=== PATIENT | male | born 1960 | race Hispanic/Latino ===

== ENCOUNTER 2018-05-09 09:10 | Inpatient (IN) | payer BC ==
[2018-05-09 09:11] VITALS: BMI 32.8
[2018-05-09 09:53] LABS: BASO % 0.4 % (0.0-2.0); EOS # 0.1 K/uL (0.0-0.7); EOS % 1.2 % (0.0-4.0); HEMOGLOBIN 6.8 g/dL (12.0-18.0); LYMPH % 23.3 % (20.0-40.0); MEAN CELL VOLUME 93.3 fL (80.0-94.0); MEAN CORPUSCULAR HEMOGLOBIN 28.8 pg (27.0-31.0); MEAN CORPUSCULAR HGB CONC 30.9 g/dL (33.0-37.0); MEAN PLATELET VOLUME 9.1 fL (7.2-11.7); MONO # 0.4 K/uL (0.0-0.8); MONO % 8.7 % (0.0-10.0); NEUT # 2.8 K/uL (1.8-7.0); NEUT % 66.4 % (50.0-75.0); NRBC % 0.1 % (0.0-2.0); RBC 2.38 Mil/uL (4.40-5.90); RED CELL DISTRIBUTION WIDTH 22.9 % (11.5-14.5); WHITE BLOOD COUNT 4.3 K/uL (4.8-10.8)
[2018-05-09 10:02] LABS: IRON 17 ug/dL (49-181)
[2018-05-09 10:03] LABS: INR 1.2; PROTHROMBIN TIME 12.9 SECONDS (9.7-12.2)
[2018-05-09 10:12] LABS: % IRON SATURATION 3 (20-55); TOTAL IRON BINDING CAPACITY 509 ug/dL (250-450)
[2018-05-09 10:41] LABS: FERRITIN 5.6 ng/mL
--- NOTE | 2018-05-09 11:04 | C.PDOC ---
History Of Present Illness 57-year-old male, is sent to the emergency department from Dr Barba office for symptomatic anemia. Patient had bloodwork done two days ago which showed a low hemoglobin. he is complaining of generalized weakness. No nausea/vomiting, fever, chills, blood in stool or any other associated symptoms. No other complaints at this time. Chief Complaint (Nursing): Weakness/Neurological Deficit Past Medical History Reviewed: Historical Data, Nursing Documentation, Vital Signs Vital Signs: Last Vital Signs Temp 99.8 F H 05/09/18 09:19 Pulse 93 H 05/09/18 09:19 Resp 18 05/09/18 09:19 BP 168/83 H 05/09/18 09:19 Pulse Ox 100 05/09/18 09:19 - Medical History PMH: Anemia, Arthritis, Gastritis, HTN, Hypothyroidism Family History: States: No Known Family Hx - Social History Hx Alcohol Use: Yes Hx Substance Use: No - Immunization History Hx Tetanus Toxoid Vaccination: No Hx Influenza Vaccination: No Hx Pneumococcal Vaccination: No Physical Exam - Physical Exam Appears: Non-toxic, No Acute Distress Skin: Warm, Dry, No Rash Head: Atraumatic, Normacephalic Eye(s): bilateral: PERRL, EOMI, Conjunctiva Pale Nose: Normal Oral Mucosa: Moist Lips: Normal Appearing Neck: Normal ROM Cardiovascular: Rhythm Regular, No Murmur Respiratory: Normal Breath Sounds, No Accessory Muscle Use Gastrointestinal/Abdominal: Soft, No Tenderness Back: Normal Inspection Extremity: Normal ROM, No Deformity Neurological/Psych: Oriented x3, Normal Speech ED Course And Treatment - Laboratory Results Result Diagrams: 05/09/18 09:45 05/09/18 09:45 O2 Sat by Pulse Oximetry: 100 Pulse Ox Interpretation: Normal (RA) Disposition - Disposition Disposition Time: 10:00 Condition: STABLE - Clinical Impression Clinical Impression: Symptomatic anemia - Scribe Statement The provider has reviewed the documentation as recorded by the Scribe (Mihaela Bustos) Provider Attestation: All medical record entries made by the Scribe were at my direction and personally dictated by me. I have reviewed the chart and agree that the record accurately reflects my personal performance of the history, physical exam, medical decision making, and the department course for this patient. I have also personally directed, reviewed, and agree with the discharge instructions and disposition.
[2018-05-09 11:05] LABS: ALB/GLOB RATIO 2.2 (1.0-2.1); ALBUMIN 4.1 g/dL (3.5-5.0); ALT/SGPT 46 U/L (21-72); AST/SGOT 23 U/L (17-59); BLOOD UREA NITROGEN 20 mg/dL (9-20); CALCIUM 9.1 mg/dl (8.6-10.4); GFR NON-AFRICAN AMERICAN > 60
[2018-05-09] MEDS: (Novolog) Insulin Aspart, Recombinant 100 u/ml 10 ml vial SC SCH (21:53)
[2018-05-10] MEDS: (Novolog) Insulin Aspart, Recombinant 100 u/ml 10 ml vial SC SCH ×4 (07:40→21:40)
[2018-05-10 08:01] LABS: HEMOGLOBIN 8.3 g/dL (12.0-18.0); MEAN CORPUSCULAR HEMOGLOBIN 28.1 pg (27.0-31.0); MEAN CORPUSCULAR HGB CONC 31.5 g/dL (33.0-37.0); RBC 2.95 Mil/uL (4.40-5.90); RED CELL DISTRIBUTION WIDTH 21.2 % (11.5-14.5); WHITE BLOOD COUNT 4.7 K/uL (4.8-10.8)
[2018-05-10 08:07] LABS: MEAN CELL VOLUME 89.3 fL (80.0-94.0)
[2018-05-10 08:20] LABS: HDL CHOLESTEROL 24 mg/dL (30-70); IRON 119 ug/dL (49-181)
[2018-05-10 08:27] LABS: ALB/GLOB RATIO 2.2 (1.0-2.1); ALBUMIN 4.4 g/dL (3.5-5.0); ALT/SGPT 53 U/L (21-72); AST/SGOT 29 U/L (17-59); BLOOD UREA NITROGEN 14 mg/dL (9-20); CALCIUM 9.2 mg/dl (8.6-10.4); GFR NON-AFRICAN AMERICAN > 60
[2018-05-10 08:31] LABS: % IRON SATURATION 22 (20-55); TOTAL IRON BINDING CAPACITY 545 ug/dL (250-450)
[2018-05-10 08:33] LABS: LDL CHOLESTEROL 66 mg/dL (0-129)
--- NOTE | 2018-05-10 08:41 | HP ---
The patient was seen and examined at bedside in the emergency room on 05/09/2018. He has family around him. CHIEF COMPLAINT: Generalized weakness. HISTORY OF PRESENT ILLNESS: Mr. Misael Welsh is a 57-year-old male, sent to the emergency room department from Dr. Gallego's office for symptomatic anemia. The patient had blood workup done two days ago which showed low hemoglobin. He is complaining of generalized weakness. No nausea or vomiting. No fever. No chills. No blood in the stool or any other associated symptoms. No other complaints at this time when I saw the patient in ER. He was just feeling fatigued and tired. PAST MEDICAL HISTORY: Anemia, according to patient it is sideroblastic anemia; arthritis; gastritis; hypertension; and hypothyroidism. HABITS: Alcohol, yes. Substance abuse, no. Smoking, no. REVIEW OF SYSTEMS: The patient was seen and examined at the bedside in ER. Feeling fatigued, tired. No nausea, vomiting, or diarrhea. No hematuria. No hematochezia. No swelling of the leg. No chest pain. No palpitations, headaches, or dizziness. PHYSICAL EXAMINATION: VITAL SIGNS: Temperature 99.8, pulse 92, respiratory rate 18, blood pressure 116/83. HEENT: Head: Normocephalic, atraumatic. Eyes: PERRLA. Extraocular muscles intact. Conjunctivae clear. Nose patent. NECK: Supple. No carotid bruit. No JVD or thyromegaly. CHEST: Bilaterally symmetrical. HEART: S1 and S2 positive. LUNGS: Clear to auscultation. ABDOMEN: Soft. Bowel sounds present. No organomegaly. EXTREMITIES: No edema. No cyanosis. NEUROLOGICAL: The patient is awake and alert. Moving all 4 extremities. No focal deficits. LABORATORY DATA: White blood cells 4.3, hemoglobin 6.8, hematocrit 22.2, and platelets 192. Sodium 144, potassium 4.1, BUN 20, creatinine 0.7, and glucose 142. ASSESSMENT AND PLAN: Mr. Misael Welsh is a 57-year-old male with leukopenia, anemia, hyperchloremia, hyperglycemia, who is admitted with symptomatic anemia. The patient has sideroblastic anemia. As per patient, history of knee surgery at childhood. Blood pressure is high, started blood pressure medications. Started on home medications, would consult with Dr. Gallego, the patient's fx artist. Gastrointestinal and deep venous thrombosis prophylaxis given. Start him on folic acid and metformin for diabetes mellitus, potassium replacement, hydrochlorothiazide, insulin, Trileptal, and Xanax. We will follow up. Nini Naranjo MD MTDTawanna
[2018-05-10 09:20] LABS: FOLATE > 20.0 ng/mL
[2018-05-10] MEDS: Potassium Chloride 10 mEq ER Tab PO SCH (09:31)
[2018-05-10] MEDS ORDERED: METAXALONE 400 MG PO SCH (10:00)
[2018-05-10] MEDS ORDERED: FOLIC ACID 0.8 MG PO SCH (10:00)
[2018-05-10] MEDS ORDERED: Ferric Sodium Gluconat Complex 62.5 mg/5 ml Vial IVPB SCH (10:00)
[2018-05-10] MEDS ORDERED: VALSARTAN 80 MG PO SCH (10:00)
[2018-05-10] MEDS: Ferric Sodium Gluconat Complex 125 MG in Sodium Chloride 0.9% 100 ML IVPB SCH (10:44)
[2018-05-10 17:00] VITALS: RESP 20
--- NOTE | 2018-05-10 21:40 | CON ---
DATE: 05/10/2018 HISTORY OF PRESENT ILLNESS: This is a 57-year-old man, very well known to me. 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 This diagnosis was made about 34 years ago by and after halfway he passed the patient along to me. I have been watching him for the last 20 years. His hemoglobin basically is around 9 and he has to undergo treatment. Retic counts would be around 3% on average. He was doing very well until very recently. About two weeks ago when he came to the office, his hemoglobin was 7. He denies any change in bowel habits or diarrhea, or bleeding overall. He was not having chest pain, no shortness of breath, and his MCV was somewhat ____, iron deficiency, start him on the iron pills to see how he does until later. When he came to the office, he was severely short of breath with very slight chest pressure. He was very short of breath and weak. His hemoglobin in the office was 6.2. We told him to go to the emergency room, we called the ambulance where hemoglobin was found to be 6.8. His iron levels are low at 3% on iron saturation. PHYSICAL EXAMINATION: SKIN: No petechiae. No bruises. HEENT: Anicteric. Nodes nonpalpable in the axillary, cervical, supraclavicular, or inguinal regions. LUNGS: Clear at present. No vertebral tenderness. HEART: S1 and S2. ABDOMEN: Shows no liver, no spleen, no tenderness, and no rebound. No ascites. EXTREMITIES: No edema. 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 ASSESSMENT AND PLAN: The patient has an iron deficiency anemia that is new superimposed on his chronic sideroblastic anemia. He received two units of packed cells and he feels somewhat better. I will order while here in the hospital Ferrlecit 125 mg intravenously. He will upon discharge hopefully today, he will see me in the office on Monday. I will repeat the CBC. I will give him further intravenous iron, and I told him that after the hemoglobin starts going up and he feels a little bit better, we will send him to the back grinder. He has one Dr. Marlee Hutchison in [place] to further evaluate him and then to see Gastroenterology and he has Dr. Albarran who has scoped him in the past and I will have to see Dr. Albarran after he sees Dr. Hutchison and I told him there are many possibilities for why he has the iron deficiency, but he has bled somewhere internally, whether he has ulcer, gastritis, cancer, polyp, hemorrhoids, but he has to be evaluated. So he will be in my office on Monday at one o'clock for an intravenous iron and a recheck of his CBC and I will give him intravenous iron while he is in the hospital today. From hematological point of view, he will be discharged today. Misael Gallego MD
[2018-05-10] MEDS: METAXALONE 400 MG PO PRN (21:42)
[2018-05-11 04:43] VITALS: O2SAT 97
[2018-05-11] MEDS: (Novolog) Insulin Aspart, Recombinant 100 u/ml 10 ml vial SC SCH ×2 (07:30→11:45)
[2018-05-11 07:44] LABS: HEMOGLOBIN 8.3 g/dL (12.0-18.0); MEAN CELL VOLUME 90.9 fL (80.0-94.0); MEAN CORPUSCULAR HEMOGLOBIN 28.7 pg (27.0-31.0); MEAN CORPUSCULAR HGB CONC 31.6 g/dL (33.0-37.0); MEAN PLATELET VOLUME 9.3 fL (7.2-11.7); RBC 2.9 Mil/uL (4.40-5.90); RED CELL DISTRIBUTION WIDTH 21.3 % (11.5-14.5); WHITE BLOOD COUNT 4.2 K/uL (4.8-10.8)
--- NOTE | 2018-05-11 07:46 | PN ---
DATE: 05/10/2018 SUBJECTIVE: The patient was seen and examined at the bedside on 05/10/2018, looking comfortable. No nausea, vomiting, or diarrhea. No hematochezia. No headache. No dizziness. No chest pain. No palpitation. but had fatigue. PHYSICAL EXAMINATION: VITAL SIGNS: Temperature 97.2, pulse 55, blood pressure 151/92, respiratory rate 20. HEENT: Head normocephalic, atraumatic. Eyes, PERRLA. Extraocular muscles intact. Conjunctivae clear. Nose patent. Mucous membranes moist. NECK: Supple. No carotid bruits. No JVD or thyromegaly. CHEST: Bilaterally symmetrical. HEART: S1, S2 positive. LUNGS: Clear to auscultation. ABDOMEN: Soft. Bowel sounds are positive. No organomegaly. EXTREMITIES: No edema, no cyanosis. NEUROLOGIC: The patient is awake and alert. Moving all four extremities. No focal deficits. MEDICATIONS: Cozaar, sodium gluconate, folic acid, Glucophage, potassium, , Norvasc, insulin, Trileptal, Xanax, allopurinol. LABORATORY DATA: White blood cell 4.7, hemoglobin 8.3, hematocrit 26.3, platelets 175, glucose 113, HDL 24. ASSESSMENT AND PLAN: Mr. Misael Welsh is a 57-year-old male with leukopenia, anemia, hyperglycemia. Has iron deficiency, superimposed on chronic sideroblastic anemia with acute anemia. He received two units of packed rbc's and feels somewhat better. Dr. Gallego ordered for him Ferrlecit 125 intravenously. He will upon discharge , hopefully will see Dr. Gallego in his office. Repeat RBC, hemoglobin, iron. As soon as hemoglobin started better. The patient needs cardiac evaluation and gastrointestinal evaluation but he has his own private physician in [facility]. As per Dr. Gallego, the patient will see his private physician as outpatient. We will follow up. Nini Naranjo MD MTDD
[2018-05-11 08:01] LABS: BLOOD UREA NITROGEN 14 mg/dL (9-20); CALCIUM 9.2 mg/dl (8.6-10.4); GFR NON-AFRICAN AMERICAN > 60
[2018-05-11] MEDS: Potassium Chloride 10 mEq ER Tab PO SCH (09:29)
[2018-05-11] MEDS: METAXALONE 400 MG PO PRN (09:31)
[2018-05-11] MEDS: Ferric Sodium Gluconat Complex 125 MG in Sodium Chloride 0.9% 100 ML IVPB SCH (10:30)
--- NOTE | 2018-05-11 14:58 | CARD ---
APPROVED REPORT Date of service: 05/09/2018 EKG Measurement Heart [id number] CT [id number] <Conclusion> Poor data quality, interpretation may be adversely affected Normal sinus rhythm ST & T wave abnormality, consider inferolateral ischemia Abnormal ECG
[2018-05-11 16:12] VITALS: BP 138/88; PULSE 92; TEMP 97.5
--- NOTE | 2018-05-11 16:38 | CP.PCM.PN ---
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5 mg Amlodipine Besylate (Norvasc) 10 mg PO DAILY [facility] Last Admin: 05/11/18 09:29 Dose: 10 mg Folic Acid (Folic Acid) 1 mg PO DAILY [facility] Last Admin: 05/11/18 09:29 Dose: 1 mg Home Med (Patient's Own Medication) 400 tab PO TID PRN PRN Reason: MUSCLE SPASMS Last Admin: 05/11/18 09:31 Dose: 400 tab Hydrochlorothiazide (Microzide) 12.5 mg PO DAILY [facility] Last Admin: 05/11/18 09:30 Dose: 12.5 mg Ferric Sodium Gluconate Complex 125 mg/ Sodium Chloride 110 mls @ 110 mls/hr IVPB DAILY [facility] Stop: 05/18/18 10:01 Last Admin: 05/11/18 10:30 Dose: 110 mls/hr Insulin Aspart (Novolog) 0 unit SC ACHS [facility]; Protocol Last Admin: 05/11/18 11:45 Dose: Not Given Losartan Potassium (Cozaar) 50 mg PO DAILY [facility] Last Admin: 05/11/18 09:29 Dose: 50 mg Metformin HCl (Glucophage Xr) 750 mg PO DAILY [facility] Last Admin: 05/11/18 09:30 Dose: 750 mg Oxcarbazepine (Trileptal) 150 mg PO BID [facility] Last Admin: 05/11/18 09:32 Dose: 150 mg Potassium Chloride (Klor-Con 10) 10 meq PO DAILY [facility] Last Admin: 05/11/18 09:29 Dose: 10 meq - Labs Labs: 05/11/18 07:37 05/11/18 07:37 PT 12.9 SECONDS (9.7-12.2) H 05/09/18 09:45 INR 1.2 05/09/18 09:45 APTT 29 SECONDS (21-34) 05/09/18 09:45 Assessment and Plan - Assessment and Plan (Free Text) Assessment: A/P 57 yr old male admitted with symptomatic anemia hgb improved after PRBC transfusion and stable patient received ferrlicet IV x [address] Gallego, cleared fro discharge from hematology standpoint and f/u with his office on Monday D/w Dr. Espino, cleared for discharge home today and f/u with his private FI Dr. Deion kern next week discharge plan discussed with patient who understands and agrees with plan
--- NOTE | 2018-05-14 07:48 | CON ---
DATE: 05/11/2018 HEMATOLOGY CONSULTATION This is a 57-year-old man with underlying chronic anemia, sideroblastic anemia whole his life with the hemoglobin normally at about 9, but with new iron-deficiency anemia. He denies GI complaints. No change of bowel habits, melena, or bleeding, but his iron level is low, so he is status post two units packed cells, also the IV iron he got yesterday and he is getting another one today, and most likely he will be discharged today. He knows to come to my office on Monday. I will give him the IV iron as well as CBC. He agrees that once the blood is little bit high, he will go to see Dr. Marlee Hutchison at [place] for cardiac evaluation and see Dr. Albarran for the GI evaluation to see why he has the iron deficiency. He is doing much better. His shortness of breath has gone away. Has chest pressure that was relatively mild, to begin which is no longer there. He has to sit up and walk into the bathroom, so I will see him on Monday at 1 o'clock. Misael Gallego MD
== END 2018-05-11 17:16 | disposition home or self-care (01) | DRG 812 ==
LOC: C.ER 09:10 → C.9E 11:17 → C.6T 21:34
PROVIDERS: ADMIT Internal Medicine; ATTEND Internal Medicine
PROC: 30233N1 Transfusion of Nonautologous Red Blood Cells into Peripheral Vein, Percutaneous Approach (ICD-10-PCS; principal; 2018-05-09)
DX: D64.3 Other sideroblastic anemias (principal); D72.819 Decreased white blood cell count, unspecified; E87.8 Other disorders of electrolyte and fluid balance, not elsewhere classified; E03.9 Hypothyroidism, unspecified; I10 Essential (primary) hypertension; R73.9 Hyperglycemia, unspecified